=== PATIENT | female | born 1960 | race African-American/Black ===

== ENCOUNTER 2021-02-10 11:56 | Outpatient (CLI) | payer BC ==
[2021-02-10 17:51] LABS: MEAN CORPUSCULAR HEMOGLOBIN 26.7 pg (27.0-31.0); MEAN CORPUSCULAR HGB CONC 31.8 g/dL (32.0-36.0); MEAN PLATELET VOLUME 9.6 fL (7.9-10.8); RED BLOOD COUNT 5.24 10^6/uL (4.20-5.40); RED CELL DISTRIBUTION WIDTH 14.3 % (12.0-15.0); WHITE BLOOD COUNT 7.8 x10^3/uL (4.8-10.8)
[2021-02-10 17:55] LABS: ALBUMIN 4.2 g/dL (3.2-5.5); ALBUMIN/GLOBULIN RATIO 1.1 (1.0-2.2); BILIRUBIN,TOTAL 0.6 mg/dL (0.2-1.0); CALCIUM 9.5 mg/dL (8.5-10.3); CREATININE 0.7 mg/dL (0.4-1.0); POTASSIUM 3.6 mmol/L (3.5-5.0)
[2021-02-10 20:31] LABS: ESTIMATED AVERAGE GLUCOSE 194 mg/dL (70-100); HEMOGLOBIN A1c% 8.4 % (4.27-6.07)
--- NOTE | 2021-02-15 09:54 | XRAY Report ---
PROCEDURE: Abdomen 3 View X-Ray INDICATIONS: CONSTIPATION TECHNIQUE: 1 view of the abdomen were acquired. COMPARISON: None available FINDINGS: Surgical changes and devices: None. Bowel: No pneumoperitoneum. The bowel gas pattern is normal. Soft tissues: No masses; visualized solid organ contours appear normal in size. No suspicious abdom inal calcifications. Bones: No suspicious bony abnormalities. IMPRESSION: Normal bowel gas pattern. Reviewed by: SIMBA Delgado on 02/15/2021 9:53 AM PDT Approved by: Cesilia Gill MD on 02/15/2021 9:53 AM PDT Station ID: [id number]
== END 2021-02-10 23:59 | disposition home or self-care (01) ==
LOC: DI.N 11:56
PROVIDERS: ATTEND Physician Assistant Medical
DX: K59.00 Constipation, unspecified (principal); I10 Essential (primary) hypertension
CPT/HCPCS: 36415; 80053; 83036; 84443; 85025; 85027